=== PATIENT | female | born 1930 | race Hispanic/Latino ===

== ENCOUNTER 2018-01-15 22:01 | Inpatient (IN) | payer MEDICARE, OTHER ==
[~2018-01-15] VITALS: Ht 154.9 cm; Wt 49.9 kg
[2018-01-15 22:37] LABS: BASOPHILS % 0.6 % (0.0-1.0); EOSINOPHILS % 0.6 % (0.0-6.0); HEMOGLOBIN 13.8 g/dL (12.0-16.0); LYMPHOCYTES % 43.8 % (18.0-39.1); MEAN CORPUSCULAR HGB CONC 34.5 g/dL (31-35); MONOCYTES # (AUTO) 0.4 (0.2-0.8); MONOCYTES % 5.8 % (4.4-11.3); NEUTROPHILS # (AUTO) 3.3 (2.1-6.9); PLATELET COUNT 175 x10e3/uL (140-360); RED CELL DISTRIBUTION WIDTH 12.4 % (11.7-14.4)
[2018-01-15 22:42] LABS: BILIRUBIN,URINE NEGATIVE (NEGATIVE); CLARITY,URINE CLEAR (CLEAR); COLOR,URINE YELLOW (YELLOW); KETONES,URINE TRACE (NEGATIVE); LEUKOCYTE ESTERASE ,URINE NEGATIVE (NEGATIVE); NITRITE,URINE NEGATIVE (NEGATIVE); PROTEIN,URINE DIPSTICK NEGATIVE (NEGATIVE); URINE UROBILINOGEN 0.2 mg/dL (0.2 - 1)
--- NOTE | 2018-01-15 22:55 | Diagnostic Imaging Report ---
EXAMINATION: CHEST SINGLE (PORTABLE) INDICATION: Shortness of breath COMPARISON: None FINDINGS: TUBES and LINES: None. LUNGS: Lungs are well inflated. Lungs are clear. There is no evidence of pneumonia or pulmonary edema. PLEURA: No pleural effusion or pneumothorax. HEART AND MEDIASTINUM: Cardiac size is mildly enlarged. There are atherosclerotic calcifications within the aorta. Midline sternotomy wires are intact BONES AND SOFT TISSUES: No acute osseous lesion. Calcific tendinopathy of the right rotator cuff tendon. Soft tissues are unremarkable. UPPER ABDOMEN: No free air under the diaphragm. IMPRESSION: No acute thoracic abnormality. Signed by: Dr. Fei Sage M.D. on 01/15/2018 10:52 PM
[2018-01-15 22:56] LABS: BACTERIA,URINE RARE /HPF; EPITHELIAL CELLS,URINE RARE /LPF
[2018-01-15 22:59] LABS: ALANINE AMINOTRANSFERASE 16 IU/L (0-55); ALBUMIN 3.6 g/dL (3.5-5.0); ALKALINE PHOSPHATASE 156 IU/L (40-150); ANION GAP 16.4 mmol/L (8-16); BLOOD UREA NITROGEN 13 mg/dL (7-26); BUN/CREATININE RATIO 15 (6-25); CALCIUM 9.8 mg/dL (8.4-10.2); CARBON DIOXIDE 26 mmol/L (22-29); CHLORIDE 94 mmol/L (98-107); CREATININE, SERUM 0.86 mg/dL (0.57-1.11); EST GLOMERULAR FILTRATION RATE > 60 ML/MIN (60-); POTASSIUM 4.4 mmol/L (3.5-5.1); SODIUM 132 mmol/L (136-145)
[2018-01-15 23:01] LABS: GLUCOSE 544 mg/dL (74-118)
[2018-01-15] MEDS ORDERED: INSULIN REGULAR, HUMAN 100 UNIT/1 ML 3ML VIAL SQ ONE (23:15)
[2018-01-15] MEDS: SODIUM CHLORIDE 0.9% 1000ML 1,000 ML IV SCH (23:38)
[2018-01-15] MEDS ORDERED: HYDRALAZINE HCL 20 MG/ML VIAL IV PRN (23:45)
[2018-01-15] MEDS ORDERED: DEXTROSE 50% SYRINGE 50 ML IV PRN (23:45)
[2018-01-15] MEDS ORDERED: ONDANSETRON HCL INJ 2 MG/ML VIAL IV PRN (23:45)
[2018-01-16] VITALS (10 sets, daily range): BP systolic 108–200; BP diastolic 57–79
[2018-01-16] MEDS ORDERED: ZYPREXA5 MG PO (00:03)
[2018-01-16] MEDS ORDERED: METOPROLOL TART25 MG PO (00:03)
[2018-01-16] MEDS ORDERED: PLAVIX75 MG PO (00:03)
[2018-01-16] MEDS ORDERED: ZOLOFT50 MG PO (00:03)
[2018-01-16] MEDS ORDERED: ASPIRIN81 MG PO (00:03)
[2018-01-16] MEDS ORDERED: MONTELUKAST SOD10 MG PO (00:03)
[2018-01-16] MEDS ORDERED: DOCUSATE SODIU100 MG PO (00:03)
[2018-01-16] MEDS ORDERED: ULTRACET TABLE1 EACH PO (00:03)
[2018-01-16] MEDS ORDERED: FOLIC ACID1 MG PO (00:03)
[2018-01-16] MEDS ORDERED: DEPAKOTE SPRIN125 MG PO (00:03)
[2018-01-16] MEDS ORDERED: VITAMIN D31000 UNIT PO (00:03)
[2018-01-16] MEDS ORDERED: SENNOSIDES8.6 MG PO (00:03)
[2018-01-16] MEDS ORDERED: BISCOLAX10 MG RC (00:03)
[2018-01-16] MEDS ORDERED: LIPITOR20 MG PO (00:03)
[2018-01-16] MEDS ORDERED: NAMENDA10 MG PO (00:03)
[2018-01-16] MEDS ORDERED: DIVALPROEX SODIUM PO SCH (00:15)
[2018-01-16] MEDS ORDERED: DEXTROSE 50% SYRINGE 50 ML IV PRN (01:00)
[2018-01-16] MEDS ORDERED: CLONIDINE HCL 0.1 MG TAB ONE (01:18)
[2018-01-16] MEDS ORDERED: CLONIDINE HCL 0.1 MG TAB PO PRN (06:00)
[2018-01-16 06:40] LABS: BASOPHILS # (AUTO) 0.1 (0.0-0.1); BASOPHILS % 0.5 % (0.0-1.0); EOSINOPHILS # (AUTO) 0.1 (0.0-0.4); EOSINOPHILS % 0.6 % (0.0-6.0); HEMOGLOBIN 12.8 g/dL (12.0-16.0); LYMPHOCYTES # (AUTO) 5.1 (1.0-3.2); MEAN CORPUSCULAR HGB CONC 33.7 g/dL (31-35); MONOCYTES # (AUTO) 1.5 (0.2-0.8); MONOCYTES % 9.2 % (4.4-11.3); NEUTROPHILS # (AUTO) 9.5 (2.1-6.9); NEUTROPHILS % 57.6 % (38.7-80.0); PLATELET COUNT 194 x10e3/uL (140-360); RED BLOOD COUNT 4.27 x10e6/uL (3.6-5.1); RED CELL DISTRIBUTION WIDTH 12.5 % (11.7-14.4)
[2018-01-16 07:02] LABS: ALANINE AMINOTRANSFERASE 14 IU/L (0-55); ALBUMIN 3.5 g/dL (3.5-5.0); ALKALINE PHOSPHATASE 100 IU/L (40-150); ANION GAP 12.8 mmol/L (8-16); BLOOD UREA NITROGEN 13 mg/dL (7-26); BUN/CREATININE RATIO 19 (6-25); CALCIUM 9.3 mg/dL (8.4-10.2); CARBON DIOXIDE 27 mmol/L (22-29); CHLORIDE 103 mmol/L (98-107); CREATININE, SERUM 0.67 mg/dL (0.57-1.11); EST GLOMERULAR FILTRATION RATE > 60 ML/MIN (60-); SODIUM 140 mmol/L (136-145)
[2018-01-16] MEDS: INSULIN REGULAR, HUMAN 100 UNIT/1 ML 3ML VIAL SQ SCH ×4 (07:30→21:00)
[2018-01-16] MEDS ORDERED: INSULIN REGULAR, HUMAN 100 UNIT/1 ML 3ML VIAL SQ SCH (07:30)
[2018-01-16 07:48] LABS: BAND NEUTROPHILS % (MANUAL) 2 %; LYMPHOCYTES % (MANUAL) 32 % (19-48); MONOCYTES % (MANUAL) 12 % (3.4-9.0); NEUTROPHILS % (MANUAL) 52 % (40-74)
[2018-01-16 07:49] LABS: ANISOCYTOSIS SLIGHT; PLATELET ESTIMATE ADEQUATE; PLATELET MORPHOLOGY COMMENT FEW LARGE; RBC MORPHOLOGY COMMENT NORMAL
[2018-01-16] MEDS ORDERED: POTASSIUM CHLORIDE 20MEQ/15ML UDC PO ONE ×2 (08:00→11:00)
[2018-01-16] MEDS: FOLIC ACID 1 MG TAB PO SCH (08:19)
[2018-01-16] MEDS: METOPROLOL TARTRATE 25 MG TAB PO SCH (08:19)
[2018-01-16] MEDS: DOCUSATE SODIUM 100 MG CAP PO SCH ×2 (08:19→18:01)
[2018-01-16] MEDS: DIVALPROEX SODIUM 250 MG TAB...DR PO SCH ×2 (08:19→21:40)
[2018-01-16] MEDS: ASPIRIN 81 MG CHEW TAB PO SCH (08:19)
[2018-01-16] MEDS: CLOPIDOGREL BISULFATE 75 MG TAB PO SCH (08:20)
[2018-01-16] MEDS: MEMANTINE 10 MG TAB PO SCH (08:20)
[2018-01-16] MEDS: CHOLECALCIFEROL 1,000 UNIT TAB PO SCH (08:20)
[2018-01-16] MEDS ORDERED: CLONIDINE HCL 0.1 MG TAB PO SCH (09:00)
[2018-01-16] MEDS ORDERED: ATORVASTATIN 20 MG TAB PO SCH ×2 (09:00→21:00)
[2018-01-16] MEDS ORDERED: DIVALPROEX SODIUM 125 MG TABDR...ER PO SCH (09:00)
[2018-01-16] MEDS ORDERED: NON-FORMULARY MEDICATION (Cholecalciferol (Vitamin D3) (Vitamin D3) 1 TAB) PO SCH (09:00)
[2018-01-16 11:12] LABS: GLUCOSE 54 mg/dL (74-118); POTASSIUM 2.8 mmol/L (3.5-5.1)
[2018-01-16] MEDS: SODIUM CHLORIDE 0.9% 1000ML 1,000 ML IV SCH ×2 (12:42→19:35)
[2018-01-16] MEDS: INSULIN DETEMIR 100 UNIT/ML PEN SQ SCH (18:01)
[2018-01-16] MEDS: OLANZAPINE 5 MG TAB PO SCH (21:40)
[2018-01-16] MEDS: MONTELUKAST SODIUM 10 MG TAB PO SCH (21:40)
[2018-01-16] MEDS: ATORVASTATIN 40 MG TAB PO SCH (21:40)
[2018-01-17] VITALS (8 sets, daily range): BP systolic 132–178; BP diastolic 60–74
[2018-01-17] MEDS: SODIUM CHLORIDE 0.9% 1000ML 1,000 ML IV SCH ×4 (02:28→20:35)
[2018-01-17 06:43] LABS: BASOPHILS % 0.4 % (0.0-1.0); EOSINOPHILS # (AUTO) 0.1 (0.0-0.4); EOSINOPHILS % 1.7 % (0.0-6.0); HEMATOCRIT 36.6 % (34.2-44.1); HEMOGLOBIN 12.3 g/dL (12.0-16.0); LYMPHOCYTES # (AUTO) 3.8 (1.0-3.2); LYMPHOCYTES % 55.4 % (18.0-39.1); MEAN CORPUSCULAR HEMOGLOBIN 30.5 pg (28-32); MEAN CORPUSCULAR HGB CONC 33.6 g/dL (31-35); MEAN CORPUSCULAR VOLUME 90.8 fL (81-99); MONOCYTES # (AUTO) 0.4 (0.2-0.8); MONOCYTES % 5.1 % (4.4-11.3); NEUTROPHILS # (AUTO) 2.5 (2.1-6.9); NEUTROPHILS % 36.7 % (38.7-80.0); PLATELET COUNT 146 x10e3/uL (140-360); RED BLOOD COUNT 4.03 x10e6/uL (3.6-5.1); RED CELL DISTRIBUTION WIDTH 12.7 % (11.7-14.4)
[2018-01-17 07:07] LABS: ANION GAP 10.7 mmol/L (8-16); BLOOD UREA NITROGEN 8 mg/dL (7-26); BUN/CREATININE RATIO 13 (6-25); CALCIUM 8.2 mg/dL (8.4-10.2); CARBON DIOXIDE 23 mmol/L (22-29); CHLORIDE 112 mmol/L (98-107); CREATININE, SERUM 0.61 mg/dL (0.57-1.11); EST GLOMERULAR FILTRATION RATE > 60 ML/MIN (60-); GLUCOSE 90 mg/dL (74-118); POTASSIUM 3.7 mmol/L (3.5-5.1); SODIUM 142 mmol/L (136-145)
[2018-01-17] MEDS: INSULIN REGULAR, HUMAN 100 UNIT/1 ML 3ML VIAL SQ SCH ×4 (07:30→20:47)
[2018-01-17] MEDS: INSULIN DETEMIR 100 UNIT/ML PEN SQ SCH ×2 (09:00→17:07)
[2018-01-17] MEDS: DIVALPROEX SODIUM 250 MG TAB...DR PO SCH ×2 (10:25→20:50)
[2018-01-17] MEDS: CLOPIDOGREL BISULFATE 75 MG TAB PO SCH (10:25)
[2018-01-17] MEDS: ASPIRIN 81 MG CHEW TAB PO SCH (10:25)
[2018-01-17] MEDS: DOCUSATE SODIUM 100 MG CAP PO SCH ×2 (10:25→17:03)
[2018-01-17] MEDS: METOPROLOL TARTRATE 25 MG TAB PO SCH (10:25)
[2018-01-17] MEDS: FOLIC ACID 1 MG TAB PO SCH (10:25)
[2018-01-17] MEDS: CHOLECALCIFEROL 1,000 UNIT TAB PO SCH (10:25)
[2018-01-17] MEDS: MEMANTINE 10 MG TAB PO SCH (10:25)
[2018-01-17] MEDS: ATORVASTATIN 40 MG TAB PO SCH (20:50)
[2018-01-17] MEDS: MONTELUKAST SODIUM 10 MG TAB PO SCH (20:50)
[2018-01-17] MEDS: OLANZAPINE 5 MG TAB PO SCH (20:50)
[2018-01-18] VITALS (7 sets, daily range): BP systolic 149–192; BP diastolic 66–84
[2018-01-18] MEDS: SODIUM CHLORIDE 0.9% 1000ML 1,000 ML IV SCH ×2 (07:45→16:18)
[2018-01-18] MEDS: INSULIN DETEMIR 100 UNIT/ML PEN SQ SCH ×2 (09:00→17:00)
[2018-01-18] MEDS: INSULIN REGULAR, HUMAN 100 UNIT/1 ML 3ML VIAL SQ SCH ×4 (09:00→21:00)
[2018-01-18] MEDS: CHOLECALCIFEROL 1,000 UNIT TAB PO SCH (09:05)
[2018-01-18] MEDS: ASPIRIN 81 MG CHEW TAB PO SCH (09:05)
[2018-01-18] MEDS: MEMANTINE 10 MG TAB PO SCH (09:05)
[2018-01-18] MEDS: METOPROLOL TARTRATE 25 MG TAB PO SCH (09:05)
[2018-01-18] MEDS: CLOPIDOGREL BISULFATE 75 MG TAB PO SCH (09:05)
[2018-01-18] MEDS: DOCUSATE SODIUM 100 MG CAP PO SCH ×2 (09:05→17:13)
[2018-01-18] MEDS: FOLIC ACID 1 MG TAB PO SCH (09:05)
[2018-01-18] MEDS: DIVALPROEX SODIUM 250 MG TAB...DR PO SCH ×2 (09:05→21:56)
[2018-01-18] MEDS ORDERED: DEXTROSE 50% SYRINGE 50 ML IV PRN (16:45)
[2018-01-18] MEDS: METFORMIN HCL 500 MG TAB PO SCH (17:13)
[2018-01-18] MEDS: NYSTATIN/TRIAMCINOLONE 15 GM CR TOP SCH (17:27)
[2018-01-18] MEDS: MONTELUKAST SODIUM 10 MG TAB PO SCH (20:15)
[2018-01-18] MEDS: ATORVASTATIN 40 MG TAB PO SCH (20:15)
[2018-01-18] MEDS: OLANZAPINE 5 MG TAB PO SCH (20:15)
[2018-01-19] VITALS (11 sets, daily range): BP systolic 132–186; BP diastolic 60–74
[2018-01-19] MEDS: SODIUM CHLORIDE 0.9% 1000ML 1,000 ML IV SCH ×3 (00:25→20:35)
[2018-01-19 06:01] LABS: BASOPHILS % 0.4 % (0.0-1.0); EOSINOPHILS # (AUTO) 0.1 (0.0-0.4); EOSINOPHILS % 1.8 % (0.0-6.0); HEMATOCRIT 36.1 % (34.2-44.1); HEMOGLOBIN 12.2 g/dL (12.0-16.0); LYMPHOCYTES # (AUTO) 3.1 (1.0-3.2); LYMPHOCYTES % 46.4 % (18.0-39.1); MEAN CORPUSCULAR HEMOGLOBIN 30.1 pg (28-32); MEAN CORPUSCULAR HGB CONC 33.8 g/dL (31-35); MEAN CORPUSCULAR VOLUME 89.1 fL (81-99); MONOCYTES # (AUTO) 0.4 (0.2-0.8); MONOCYTES % 6.4 % (4.4-11.3); NEUTROPHILS % 44.6 % (38.7-80.0); PLATELET COUNT 153 x10e3/uL (140-360); RED BLOOD COUNT 4.05 x10e6/uL (3.6-5.1); RED CELL DISTRIBUTION WIDTH 12.6 % (11.7-14.4)
[2018-01-19 06:18] LABS: ANION GAP 9.9 mmol/L (8-16); BLOOD UREA NITROGEN 6 mg/dL (7-26); BUN/CREATININE RATIO 10 (6-25); CALCIUM 8.5 mg/dL (8.4-10.2); CARBON DIOXIDE 27 mmol/L (22-29); CHLORIDE 110 mmol/L (98-107); EST GLOMERULAR FILTRATION RATE > 60 ML/MIN (60-); GLUCOSE 120 mg/dL (74-118); POTASSIUM 3.9 mmol/L (3.5-5.1); SODIUM 143 mmol/L (136-145)
[2018-01-19] MEDS: INSULIN REGULAR, HUMAN 100 UNIT/1 ML 3ML VIAL SQ SCH ×4 (07:30→20:35)
[2018-01-19] MEDS: INSULIN DETEMIR 100 UNIT/ML PEN SQ SCH ×2 (07:30→17:20)
[2018-01-19] MEDS: DIVALPROEX SODIUM 250 MG TAB...DR PO SCH ×2 (08:47→20:35)
[2018-01-19] MEDS: MEMANTINE 10 MG TAB PO SCH (08:47)
[2018-01-19] MEDS: NYSTATIN/TRIAMCINOLONE 15 GM CR TOP SCH ×2 (08:47→17:20)
[2018-01-19] MEDS: CHOLECALCIFEROL 1,000 UNIT TAB PO SCH (08:47)
[2018-01-19] MEDS: FOLIC ACID 1 MG TAB PO SCH (08:47)
[2018-01-19] MEDS: METOPROLOL TARTRATE 25 MG TAB PO SCH (08:47)
[2018-01-19] MEDS: DOCUSATE SODIUM 100 MG CAP PO SCH ×2 (08:47→17:20)
[2018-01-19] MEDS: CLOPIDOGREL BISULFATE 75 MG TAB PO SCH (08:47)
[2018-01-19] MEDS: ASPIRIN 81 MG CHEW TAB PO SCH (08:47)
[2018-01-19] MEDS: METFORMIN HCL 500 MG TAB PO SCH ×2 (08:47→17:20)
[2018-01-19] MEDS ORDERED: HALOPERIDOL 5 MG TAB PO PRN (18:45)
[2018-01-19] MEDS ORDERED: HALOPERIDOL 1 MG TAB PO PRN (19:00)
[2018-01-19] MEDS: ATORVASTATIN 40 MG TAB PO SCH (20:35)
[2018-01-19] MEDS: MONTELUKAST SODIUM 10 MG TAB PO SCH (20:35)
[2018-01-19] MEDS: OLANZAPINE 5 MG TAB PO SCH (20:35)
[2018-01-19] MEDS ORDERED: CLONIDINE HCL 0.1 MG TAB PO PRN (23:45)
[2018-01-20 04:00] VITALS: BP 152/67
[2018-01-20] MEDS: SODIUM CHLORIDE 0.9% 1000ML 1,000 ML IV SCH ×3 (04:14→15:15)
[2018-01-20] MEDS: INSULIN REGULAR, HUMAN 100 UNIT/1 ML 3ML VIAL SQ SCH ×3 (07:30→16:53)
[2018-01-20] MEDS: METFORMIN HCL 500 MG TAB PO SCH ×2 (08:42→16:51)
[2018-01-20] MEDS: ASPIRIN 81 MG CHEW TAB PO SCH (08:43)
[2018-01-20] MEDS: FOLIC ACID 1 MG TAB PO SCH (08:43)
[2018-01-20] MEDS: METOPROLOL TARTRATE 25 MG TAB PO SCH (08:43)
[2018-01-20] MEDS: MEMANTINE 10 MG TAB PO SCH (08:43)
[2018-01-20] MEDS: CLOPIDOGREL BISULFATE 75 MG TAB PO SCH (08:43)
[2018-01-20] MEDS: CHOLECALCIFEROL 1,000 UNIT TAB PO SCH (08:43)
[2018-01-20] MEDS: DIVALPROEX SODIUM 250 MG TAB...DR PO SCH (08:43)
[2018-01-20] MEDS: DOCUSATE SODIUM 100 MG CAP PO SCH ×2 (08:43→16:51)
[2018-01-20] MEDS: INSULIN DETEMIR 100 UNIT/ML PEN SQ SCH ×2 (08:44→16:52)
[2018-01-20 08:46] VITALS: BP 167/70
[2018-01-20 09:00] VITALS: BP 167/70
[2018-01-20] MEDS: NYSTATIN/TRIAMCINOLONE 15 GM CR TOP SCH ×2 (11:42→16:52)
[2018-01-20 12:33] VITALS: BP 166/71
[2018-01-20 16:27] VITALS: BP 135/62
== END 2018-01-20 18:04 | DRG 638 ==
LOC: ER 22:01 → ERHOLD 23:42 → MED/SURG3 01-16 00:43
DX: E11.65 Type 2 diabetes mellitus with hyperglycemia (principal); E87.1 Hypo-osmolality and hyponatremia; Z86.73 Personal history of transient ischemic attack (TIA), and cerebral infarction without residual deficits; K21.9 Gastro-esophageal reflux disease without esophagitis; F03.90 Unspecified dementia, unspecified severity, without behavioral disturbance, psychotic disturbance, mood disturbance, and anxiety; Z66 Do not resuscitate
CPT/HCPCS: 36415; 71045; 80048; 80053; 81001; 82948; 83036; 84132; 85025; 96361; 99284; J7030; J7799